=== PATIENT | female | born 1975 | race Caucasian/White ===

== ENCOUNTER → 2016-06-10 | Outpatient (CLI) | payer BC ==
[~2016-06-10] MED LIST: ABILIFY; ABILIFY PO; ABILIFY30 MG PO; ALBUTEROL0.09 MG/A1 IH; ALLEGRA-D 24HOU1 T24 PO; ALLEGRA180 MG PO; ALLEGRA60 MG PO; AMBIEN5 MG PO; ATIVAN; ATIVAN PO; COLACE100 MG PO; DALMANE; DALMANE15 MG PO; DESYREL; DROSPIRENONE; ETHINYL ESTRADIOL PO; FLAX OIL1000 MG PO; FLEXERIL10 MG PO; FLONASE NASAL S16 GM NS; GEODON 40MG40 MG PO; HALDOL 5MG T5 MG/TAB PO; HALDOL5 MG PO; IRON TABLETS325 MG PO; LAMICTAL; LAMICTAL PO; LASIX 40MG TABL40 MG PO; LEVONORGESTREL PO; MIDRIN CAPSULE1 CAP PO; MIRALAX 17GM PK1 PKT PO; MOTRIN 800800 MG/TAB PO; NEXIUM PO; NEXIUM40 MG PO; PERCOCET 5/321 UDTAB PO; PROBIOTIC FORMU1 CAP PO; PROTONIX 40MG T40 MG PO; PROVENTIL0.09 MG/A1 IH; REVIA 50MG TABL50 MG PO; RT ADVAIR 228 DISKUS IH; SINGULAIR 110 MG/TAB PO; SINGULAIR PO; SINGULAIR10 MG PO; TESTOSTERONE; UNABLE; VITAMIN B122500 MCG SL; XANAX1 MG PO; ZOCOR10 MG PO; ZOLOFT100 MG PO; ZYRTEC 10MG10 MG PO; [UNRECOGNIZED DRUG - OTHER]
== END ==
LOC: MC.RAD 08:08
DX: Z12.31 Encounter for screening mammogram for malignant neoplasm of breast (principal)

== ENCOUNTER → 2016-09-11 | Outpatient (CLI) | payer BC | LOC: COL.RAD 08:48 | DX: R25.9 Unspecified abnormal involuntary movements (principal) | CPT/HCPCS: A9584 ==

== ENCOUNTER → 2016-09-26 | Outpatient (CLI) | payer BC | LOC: COL.RAD 09:36 | DX: K82.9 Disease of gallbladder, unspecified (principal); R80.9 Proteinuria, unspecified; R60.0 Localized edema ==

== ENCOUNTER 2016-10-14 07:35 | Outpatient (CLI) | payer BC ==
[~2016-10-14] VITALS: Ht 180.3 cm; Wt 119.1 kg
[2016-10-14] VITALS (24 sets, daily range): BP systolic 125–178; BP diastolic 71–98; PULSE 67–92; TEMP 98.5–98.9
[~2016-10-14 07:35] MED LIST changes: -ETHINYL ESTRADIOL PO; -FLAX OIL1000 MG PO; -IRON TABLETS325 MG PO; -LASIX 40MG TABL40 MG PO; -LEVONORGESTREL PO; -PROBIOTIC FORMU1 CAP PO; -PROTONIX 40MG T40 MG PO; -RT ADVAIR 228 DISKUS IH; -VITAMIN B122500 MCG SL; -ZYRTEC 10MG10 MG PO
[2016-10-14] MEDS ORDERED: LASIX 40MG TABL40 MG PO ×2 (08:33→08:34)
[2016-10-14] MEDS ORDERED: LEVONORGESTREL PO (08:35)
[2016-10-14] MEDS ORDERED: ETHINYL ESTRADIOL PO (08:35)
[2016-10-14] MEDS ORDERED: ZYRTEC 10MG10 MG PO (08:36)
[2016-10-14] MEDS ORDERED: RT ADVAIR 228 DISKUS IH (08:37)
[2016-10-14] MEDS ORDERED: PROTONIX 40MG T40 MG PO (08:37)
[2016-10-14] MEDS ORDERED: FLAX OIL1000 MG PO (08:40)
[2016-10-14] MEDS ORDERED: IRON TABLETS325 MG PO (08:42)
[2016-10-14] MEDS ORDERED: VITAMIN B122500 MCG SL (08:43)
[2016-10-14] MEDS ORDERED: PROBIOTIC FORMU1 CAP PO (08:44)
[2016-10-14 09:21] LABS: MEAN CELL VOLUME 83 fl (80.0-100.0); MEAN CORPUSCULAR HGB CONC 34 g/dl (33.0-37.0); MEAN PLATELET VOLUME 10.7 fl (7.4-10.4); PLATELET COUNT 264 K/mm3 (130-400); RED BLOOD COUNT 4.22 M/mm3 (4.10-5.30); REDCELL DISTRIBUTION WIDTH-CV 13.3 % (11.5-14.5); WHITE BLOOD COUNT 6.6 K/mm3 (4.8-10.8)
[2016-10-14 09:23] LABS: HEMOGLOBIN 11.9 g/dl (12.5-16.0); MEAN CORPUSCULAR HEMOGLOBIN 28 pg (27.0-31.0)
[2016-10-14 09:26] LABS: PROTHROMBIN TIME 10.6 SECONDS (9.7-12.8)
== END 2016-10-14 17:16 | disposition home or self-care (01) ==
LOC: COL.RAD 07:35
PROVIDERS: Internal Medicine
DX: N18.1 Chronic kidney disease, stage 1 (principal); R80.8 Other proteinuria
CPT/HCPCS: 27433

== ENCOUNTER → 2017-06-11 | Outpatient (CLI) | payer BC ==
[~2017-06-11] MED LIST changes: +ETHINYL ESTRADIOL PO; +FLAX OIL1000 MG PO; +IRON TABLETS325 MG PO; +LASIX 40MG TABL40 MG PO; +LEVONORGESTREL PO; +PROBIOTIC FORMU1 CAP PO; +PROTONIX 40MG T40 MG PO; +RT ADVAIR 228 DISKUS IH; +VITAMIN B122500 MCG SL; +ZYRTEC 10MG10 MG PO
== END ==
LOC: MC.RAD 09:40
DX: Z12.31 Encounter for screening mammogram for malignant neoplasm of breast (principal)

== ENCOUNTER → 2017-07-27 | Outpatient (CLI) | payer BC | LOC: COL.RAD 11:15 | DX: K59.00 Constipation, unspecified (principal); K80.20 Calculus of gallbladder without cholecystitis without obstruction | CPT/HCPCS: Q9967 ==

== ENCOUNTER → 2017-08-05 | Outpatient (CLI) | payer BC | LOC: COL.RAD 08:06 | DX: K80.20 Calculus of gallbladder without cholecystitis without obstruction (principal) | CPT/HCPCS: A9537 ==

== ENCOUNTER → 2017-10-06 | Outpatient (CLI) | payer BC | LOC: COL.RAD 10-05 14:27 | DX: R14.0 Abdominal distension (gaseous) (principal); K59.00 Constipation, unspecified; R94.5 Abnormal results of liver function studies; R10.9 Unspecified abdominal pain | CPT/HCPCS: A9541 ==

== ENCOUNTER 2018-01-07 10:45 | Outpatient (RCR) | payer BC | END 2018-01-08 12:27 | disposition home or self-care (01) | LOC: WSPT 10:45 | DX: M54.5 Low back pain (principal); Z79.899 Other long term (current) drug therapy | CPT/HCPCS: G0283-GP ==

== ENCOUNTER → 2018-04-19 | Outpatient (CLI) | payer BC | LOC: COL.LAB 15:29 | DX: K58.9 Irritable bowel syndrome, unspecified (principal) ==

== ENCOUNTER → 2018-07-14 | Outpatient (CLI) | payer BC | LOC: MC.RAD 06-14 09:45 | DX: Z12.31 Encounter for screening mammogram for malignant neoplasm of breast (principal) ==

== ENCOUNTER → 2019-08-29 | Outpatient (CLI) | payer BC | LOC: MC.RAD 07-18 09:30 | DX: Z12.31 Encounter for screening mammogram for malignant neoplasm of breast (principal) ==

== ENCOUNTER → 2021-07-25 | Outpatient (CLI) | payer BC | LOC: MC.RAD 09:07 | DX: Z12.31 Encounter for screening mammogram for malignant neoplasm of breast (principal) ==

== ENCOUNTER → 2021-11-13 | Outpatient (RCR) | payer BC | END | disposition home or self-care (01) | LOC: WSPT | DX: S93.412D Sprain of calcaneofibular ligament of left ankle, subsequent encounter (principal); W19.XXXD Unspecified fall, subsequent encounter ==

== ENCOUNTER → 2021-11-13 | Outpatient (RCR) | payer BC | END | disposition home or self-care (01) | LOC: WSPT | DX: M77.8 Other enthesopathies, not elsewhere classified (principal) ==

== ENCOUNTER 2021-12-20 12:45 | Outpatient (RCR) | payer BC | END 2022-01-13 | disposition home or self-care (01) | LOC: WSPT | DX: M77.8 Other enthesopathies, not elsewhere classified (principal) ==